=== PATIENT | female | born 1940 | race Caucasian/White ===

== ENCOUNTER → 2019-08-06 | Outpatient (CLI) | payer MEDICARE, OTHER ==
[~2019-08-06] MED LIST: OMNIPAQUE 350 MG/ML, 100ML BOTTLE ONE
== END | disposition home or self-care (01) ==
LOC: RAD 14:42
PROVIDERS: ATTEND Nurse Practitioner
DX: K80.20 Calculus of gallbladder without cholecystitis without obstruction (principal); M43.16 Spondylolisthesis, lumbar region; M51.36 Other intervertebral disc degeneration, lumbar region; I70.0 Atherosclerosis of aorta; N28.1 Cyst of kidney, acquired; K76.0 Fatty (change of) liver, not elsewhere classified
CPT/HCPCS: 74177; Q9967

== ENCOUNTER 2019-08-17 10:38 | Day surgery (SDC) | payer MEDICARE, OTHER ==
[2019-08-16 13:47] LABS: ALANINE AMINOTRANSFERASE 17 U/L (12-78); ALBUMIN 3.4 g/dL (3.4-5.0); ANION GAP 8 mmol/L (5-15); CALCIUM 8.7 mg/dL (8.5-10.1); CHLORIDE 109 mmol/L (98-107)
[2019-08-16 13:50] LABS: ALKALINE PHOSPHATASE 78 U/L (45-117); BILIRUBIN,TOTAL 0.5 mg/dL (0.2-1.0); TOTAL PROTEIN 6.9 g/dL (6.4-8.2)
[~2019-08-17] VITALS: Ht 166.4 cm; Wt 116.6 kg
[~2019-08-17 10:38] MED LIST changes: +CARV3.1212 PO; +CEPH-376 PO; +GABA600T7 PO; +HYDR50TA13 PO; +INSU200I4 SC; +IRON PO; +LACT1CAP35 PO; +LOPE2TAB28 PO; +METF500T17 PO; +MULT-658 PO; -OMNIPAQUE 350 MG/ML, 100ML BOTTLE ONE; +OXYC-302 PO; +PRAV40TA PO; +SERT100T32 PO; +VALS320T2 PO; +VITA100C8 PO
[2019-08-17] MEDS ORDERED: LACTATED RINGERS 1,000 ML IV SCH (11:18)
[2019-08-17 11:21] VITALS: BP 138/80
[2019-08-17] MEDS ORDERED: ACETAMINOPHEN 500 MG TABLET PO ONE (11:30)
[2019-08-17] MEDS ORDERED: LIDOCAINE 1%, 20ML ONE (11:44)
[2019-08-17] MEDS ORDERED: BUPIVACAINE/PF 0.5% ONE (11:44)
[2019-08-17] MEDS ORDERED: FENTANYL PF 100 MCG/2ML ONE (12:17)
[2019-08-17] MEDS ORDERED: PROMETHAZINE 25 MG SUPP PR PRN (12:30)
[2019-08-17] MEDS ORDERED: OXYcodone 5 MG/5 ML ORAL.SOL UDC PO PRN (12:30)
[2019-08-17] MEDS ORDERED: HYDROmorphone 2 MG/ML, 1ML IVPush PRN (12:30)
[2019-08-17] MEDS ORDERED: ONDANSETRON ODT 8 MG PO PRN (12:30)
[2019-08-17] MEDS ORDERED: PROMETHAZINE 25 MG/ML, 1ML IV PRN (12:30)
[2019-08-17] MEDS ORDERED: FENTANYL PF 100 MCG/2ML IV PRN (12:30)
[2019-08-17] MEDS ORDERED: ONDANSETRON 2MG/ML, 2ML IV PRN (12:30)
[2019-08-17] MEDS ORDERED: VANCOMYCIN 500 MG ONE (13:08)
[2019-08-17] MEDS ORDERED: ONDANSETRON 2MG/ML, 2ML ONE (13:27)
[2019-08-17] MEDS ORDERED: SUCCINYLCHOLINE 20 MG/ML, 10ML ONE (13:27)
[2019-08-17] MEDS ORDERED: PROPOFOL 10 MG/ML, 20ML ONE (13:27)
[2019-08-17] MEDS ORDERED: DEXAMETHASONE 4 MG/ML, 1ML ONE (13:27)
[2019-08-17] MEDS ORDERED: ROCURONIUM 10MG/ML,5ML ONE (13:27)
[2019-08-17] MEDS ORDERED: GLYCOPYRROLATE 0.2MG/1ML, 5ML ONE (13:27)
[2019-08-17] MEDS ORDERED: CEFAZOLIN 1,000 MG ONE (13:27)
[2019-08-17] MEDS ORDERED: NEOSTIGMINE 1 MG/ML, 10ML ONE (13:27)
[2019-08-17] MEDS ORDERED: hydrALAzine 20 MG/ML, 1ML ONE (13:49)
[2019-08-17] MEDS: hydrALAzine 20 MG/ML, 1ML IV PRN ×2 (13:59→14:24)
[2019-08-17] MEDS ORDERED: LABETALOL 5 MG/ML SYR. (IV ONLY) IV PRN (14:00)
== END 2019-08-17 16:20 | disposition home or self-care (01) ==
LOC: OUT 10:38
PROVIDERS: ATTEND Orthopaedic Surgery
DX: T81.89XA Other complications of procedures, not elsewhere classified, initial encounter (principal); E11.9 Type 2 diabetes mellitus without complications; I10 Essential (primary) hypertension; F15.90 Other stimulant use, unspecified, uncomplicated; Z79.84 Long term (current) use of oral hypoglycemic drugs; Z88.1 Allergy status to other antibiotic agents; Y83.8 Other surgical procedures as the cause of abnormal reaction of the patient, or of later complication, without mention of misadventure at the time of the procedure; Y92.89 Other specified places as the place of occurrence of the external cause
CPT/HCPCS: 20525; 36415; 80053; 82962; 87070; 87075; 87077; 87205; 93005; J0330; J0360; J0690; J1100; J2405; J2704; J2710; J3010; J3370; J7120

== ENCOUNTER 2019-10-11 16:53 | Emergency (ER) | payer MEDICARE, OTHER ==
[~2019-10-11] VITALS: Ht 162.6 cm; Wt 115.0 kg
[~2019-10-11 16:53] MED LIST changes: -HYDR50TA13 PO; +HYDR50TA99 PO
[2019-10-11 17:34] VITALS: BP 168/74
== END 2019-10-11 17:53 | disposition home or self-care (01) ==
LOC: ED 17:47
DX: G51.0 Bell's palsy (principal); I10 Essential (primary) hypertension; E11.9 Type 2 diabetes mellitus without complications; E78.5 Hyperlipidemia, unspecified
CPT/HCPCS: 99283

== ENCOUNTER 2020-03-18 17:40 | Inpatient (IN) | payer MEDICARE, OTHER ==
[~2020-03-18] VITALS: Ht 166.4 cm; Wt 104.5 kg
[2020-03-18 18:38] LABS: BASOPHILS # (AUTO) 0.01 x10^3/uL (0-0.1); BASOPHILS % (AUTO) 0 % (0-1); EOSINOPHILS # (AUTO) 0.06 x10^3/uL (0-0.4); EOSINOPHILS % (AUTO) 1 % (1-7); LYMPHOCYTES # (AUTO) 1.44 x10^3/uL (1-3.4); LYMPHOCYTES % (AUTO) 13 % (22-44); MD NO; MEAN CORPUSCULAR HEMOGLOBIN 25.9 pg (27.0-34.8); MEAN CORPUSCULAR HGB CONC 32.7 g/dL (32.4-35.8); MEAN PLATELET VOLUME 10.5 fL (7.4-10.4); MONOCYTES % (AUTO) 10 % (2-9); NEUTROPHILS # (AUTO) 8.29 x10^3/uL (1.8-6.8); NEUTROPHILS % (AUTO) 76 % (42-75); PLATELET COUNT 201 x10^3/uL (130-400); RED BLOOD COUNT 5.19 x10^6/uL (3.82-5.3); RED CELL DISTRIBUTION WIDTH 16.3 % (9.6-15.2)
[2020-03-18 18:45] LABS: ALANINE AMINOTRANSFERASE 13 U/L (12-78); ALBUMIN 3.1 g/dL (3.4-5.0); ANION GAP 11 mmol/L (5-15); CALCIUM 8.6 mg/dL (8.5-10.1); CHLORIDE 101 mmol/L (98-107); CREATININE 1.33 mg/dL (0.55-1.02)
[2020-03-18 18:47] LABS: ALKALINE PHOSPHATASE 72 U/L (45-117); BILIRUBIN,TOTAL 0.8 mg/dL (0.2-1.0); TOTAL PROTEIN 7.2 g/dL (6.4-8.2)
[2020-03-18 19:06] LABS: ACETONE, SERUM Trace (Negative)
[2020-03-18 19:08] LABS: MICROSCOPIC INDICATED
[2020-03-18] MEDS ORDERED: OXYcodone/APAP 5/325MG TABLET ONE (19:49)
[2020-03-18] MEDS ORDERED: SODIUM CHLORIDE FLUSH 10ML SYR IVF ONE ×2 (20:00→20:30)
[2020-03-18] MEDS ORDERED: CEFTRIAXONE PMX 1GM/50ML 50 ML IV ONE (20:00)
[2020-03-18] MEDS ORDERED: OXYcodone/APAP 5/325MG TABLET PO ONE (20:00)
[2020-03-18] MEDS ORDERED: SODIUM CHLORIDE FLUSH 10ML SYR IVF PRN (20:30)
[2020-03-18] MEDS ORDERED: CEFTRIAXONE PMX 1GM/50ML 50 ML ONE (20:39)
[2020-03-18] MEDS ORDERED: ONDANSETRON 2MG/ML, 2ML IVPush PRN (21:00)
[2020-03-18] MEDS ORDERED: MELATONIN 5 MG TABLET PO PRN (21:00)
[2020-03-18] MEDS ORDERED: morphine SULFATE 10 MG/ML, 1ML IVPush PRN (21:00)
[2020-03-18] MEDS ORDERED: INSULIN GLARGINE 100 UNITS/ML, PEN SQ-INSULIN SCH (21:00)
[2020-03-18 21:06] LABS: TROPONIN I < 0.015 ng/mL (0.000-0.045)
--- NOTE | 2020-03-18 21:20 | NUR ---
REPORT RECEIVED AND CARE ASSUMED. PT STATES PAIN IMPROVED AFTER MEDS. ANTIBIOTICS COMPLETE. AWAITING TRANSFER TO FLOOR. VSS.
[2020-03-18] MEDS: SODIUM CHLORIDE 0.9% 500 ML IV SCH ×2 (21:30→23:30)
--- NOTE | 2020-03-18 21:37 | NUR ---
Report to Alda.
[2020-03-18 22:31] VITALS: BP 134/63
[2020-03-18] MEDS: HEPARIN 5,000 UNITS/ML, 1ML SQ SCH (22:35)
[2020-03-18] MEDS: SERTRALINE 50MG TABLET PO SCH (22:35)
[2020-03-18] MEDS: PRAVASTATIN 40 MG TABLET PO SCH (22:35)
[2020-03-18] MEDS: CARVEDILOL 3.125 MG TABLET PO SCH (22:36)
[2020-03-18] MEDS: GABAPENTIN 300 MG CAPSULE PO SCH (22:40)
[2020-03-18] MEDS: INSULIN LISPRO 100 UNITS/ML, PEN SQ-INSULIN SCH (22:41)
[2020-03-19 01:04] VITALS: BP 96/61
[2020-03-19 02:28] LABS: BASOPHILS # (AUTO) 0.04 x10^3/uL (0-0.1); BASOPHILS % (AUTO) 1 % (0-1); EOSINOPHILS # (AUTO) 0.14 x10^3/uL (0-0.4); EOSINOPHILS % (AUTO) 2 % (1-7); LYMPHOCYTES # (AUTO) 1.84 x10^3/uL (1-3.4); LYMPHOCYTES % (AUTO) 20 % (22-44); MD NO; MEAN CORPUSCULAR HGB CONC 32.7 g/dL (32.4-35.8); MEAN PLATELET VOLUME 9.6 fL (7.4-10.4); MONOCYTES % (AUTO) 10 % (2-9); NEUTROPHILS # (AUTO) 6.25 x10^3/uL (1.8-6.8); NEUTROPHILS % (AUTO) 68 % (42-75); PLATELET COUNT 188 x10^3/uL (130-400); RED BLOOD COUNT 4.98 x10^6/uL (3.82-5.3); RED CELL DISTRIBUTION WIDTH 16.1 % (9.6-15.2)
[2020-03-19 02:39] LABS: ANION GAP 7 mmol/L (5-15); CALCIUM 8.7 mg/dL (8.5-10.1); CHLORIDE 104 mmol/L (98-107); CREATININE 1.21 mg/dL (0.55-1.02)
[2020-03-19 02:48] LABS: TROPONIN I < 0.015 ng/mL (0.000-0.045)
[2020-03-19] MEDS: OXYcodone IR 5MG TABLET PO PRN ×2 (05:52→12:12)
[2020-03-19] MEDS: HEPARIN 5,000 UNITS/ML, 1ML SQ SCH ×2 (05:52→15:37)
[2020-03-19 07:09] VITALS: BP 134/74
[2020-03-19] MEDS: INSULIN LISPRO 100 UNITS/ML, PEN SQ-INSULIN SCH ×4 (08:59→20:09)
[2020-03-19] MEDS: LACTOBACILLUS CHEW TABLET PO SCH (08:59)
[2020-03-19] MEDS: MULTIVITAMIN 1 TABLET PO SCH (08:59)
[2020-03-19] MEDS: CARVEDILOL 3.125 MG TABLET PO SCH ×2 (09:00→20:08)
[2020-03-19] MEDS: GABAPENTIN 300 MG CAPSULE PO SCH (09:00)
[2020-03-19] MEDS: FERROUS SULFATE 325 MG TABLET PO SCH (09:08)
[2020-03-19 09:13] LABS: TROPONIN I < 0.015 ng/mL (0.000-0.045)
[2020-03-19 12:10] VITALS: BP 121/67
[2020-03-19 18:54] VITALS: BP 118/79
[2020-03-19] MEDS: PRAVASTATIN 40 MG TABLET PO SCH (20:08)
[2020-03-19] MEDS: SERTRALINE 50MG TABLET PO SCH (20:08)
[2020-03-19] MEDS: CEFTRIAXONE PMX 1GM/50ML 50 ML IV SCH (20:08)
[2020-03-19] MEDS: POTASSIUM CHLORIDE 20 MEQ in LACTATED RINGERS 1,000 ML IV SCH (20:08)
[2020-03-19] MEDS: INSULIN GLARGINE 100 UNITS/ML, PEN SQ-INSULIN SCH (20:09)
[2020-03-20] MEDS: HEPARIN 5,000 UNITS/ML, 1ML SQ SCH ×3 (00:12→17:44)
[2020-03-20 00:44] VITALS: BP 136/84
[2020-03-20 06:22] LABS: ANION GAP 8 mmol/L (5-15); BASOPHILS # (AUTO) 0.03 x10^3/uL (0-0.1); BASOPHILS % (AUTO) 0 % (0-1); CALCIUM 8.8 mg/dL (8.5-10.1); CHLORIDE 107 mmol/L (98-107); EOSINOPHILS # (AUTO) 0.27 x10^3/uL (0-0.4); EOSINOPHILS % (AUTO) 3 % (1-7); LYMPHOCYTES # (AUTO) 1.51 x10^3/uL (1-3.4); LYMPHOCYTES % (AUTO) 18 % (22-44); MD NO; MEAN CORPUSCULAR HEMOGLOBIN 25.8 pg (27.0-34.8); MEAN CORPUSCULAR HGB CONC 32.3 g/dL (32.4-35.8); MEAN PLATELET VOLUME 9.4 fL (7.4-10.4); MONOCYTES # (AUTO) 0.86 x10^3/uL (0.2-0.8); MONOCYTES % (AUTO) 11 % (2-9); NEUTROPHILS # (AUTO) 5.55 x10^3/uL (1.8-6.8); NEUTROPHILS % (AUTO) 68 % (42-75); PLATELET COUNT 226 x10^3/uL (130-400); RED BLOOD COUNT 5.05 x10^6/uL (3.82-5.3); RED CELL DISTRIBUTION WIDTH 15.9 % (9.6-15.2)
[2020-03-20 06:23] LABS: CREATININE 0.94 mg/dL (0.55-1.02)
[2020-03-20 08:24] VITALS: BP 172/80
[2020-03-20] MEDS: LACTOBACILLUS CHEW TABLET PO SCH (09:14)
[2020-03-20] MEDS: MULTIVITAMIN 1 TABLET PO SCH (09:16)
[2020-03-20] MEDS: FERROUS SULFATE 325 MG TABLET PO SCH (09:17)
[2020-03-20] MEDS: CARVEDILOL 3.125 MG TABLET PO SCH ×2 (09:18→22:55)
[2020-03-20] MEDS: POTASSIUM CHLORIDE 20 MEQ in LACTATED RINGERS 1,000 ML IV SCH (09:19)
[2020-03-20] MEDS: INSULIN LISPRO 100 UNITS/ML, PEN SQ-INSULIN SCH ×4 (09:19→22:59)
[2020-03-20] MEDS: OXYcodone IR 5MG TABLET PO PRN (09:41)
[2020-03-20 12:27] VITALS: BP 146/71
[2020-03-20 20:00] VITALS: BP 150/91
[2020-03-20] MEDS: CEFTRIAXONE PMX 1GM/50ML 50 ML IV SCH (22:54)
[2020-03-20] MEDS: PRAVASTATIN 40 MG TABLET PO SCH (22:55)
[2020-03-20] MEDS: SERTRALINE 50MG TABLET PO SCH (22:57)
[2020-03-20] MEDS: INSULIN GLARGINE 100 UNITS/ML, PEN SQ-INSULIN SCH (23:00)
[2020-03-21] VITALS (15 sets, daily range): BP systolic 164–213; BP diastolic 74–111
[2020-03-21] MEDS: HEPARIN 5,000 UNITS/ML, 1ML SQ SCH ×3 (00:23→16:20)
[2020-03-21] MEDS: POTASSIUM CHLORIDE 20 MEQ in LACTATED RINGERS 1,000 ML IV SCH ×2 (00:57→17:12)
[2020-03-21] MEDS: hydrALAzine 20 MG/ML, 1ML IVPush PRN ×3 (05:23→16:27)
[2020-03-21 06:40] LABS: ANION GAP 10 mmol/L (5-15); CALCIUM 9.3 mg/dL (8.5-10.1); CHLORIDE 106 mmol/L (98-107)
[2020-03-21 06:42] LABS: CREATININE 0.62 mg/dL (0.55-1.02)
[2020-03-21] MEDS: INSULIN GLARGINE 100 UNITS/ML, PEN SQ-INSULIN SCH (08:07)
[2020-03-21] MEDS: CARVEDILOL 6.25 MG TABLET PO SCH ×2 (08:07→20:26)
[2020-03-21] MEDS: INSULIN LISPRO 100 UNITS/ML, PEN SQ-INSULIN SCH ×4 (08:08→20:28)
[2020-03-21] MEDS ORDERED: VALSARTAN 160 MG TABLET PO SCH (09:00)
[2020-03-21] MEDS: MULTIVITAMIN 1 TABLET PO SCH (09:45)
[2020-03-21] MEDS: FERROUS SULFATE 325 MG TABLET PO SCH (09:45)
[2020-03-21] MEDS: LACTOBACILLUS CHEW TABLET PO SCH (09:45)
[2020-03-21] MEDS: OXYcodone IR 5MG TABLET PO PRN (09:46)
[2020-03-21] MEDS: VALSARTAN 160 MG TABLET PO SCH (17:12)
[2020-03-21] MEDS: ACETAMINOPHEN 325 MG TABLET PO PRN (17:12)
[2020-03-21] MEDS: CEFTRIAXONE PMX 1GM/50ML 50 ML IV SCH (20:19)
[2020-03-21] MEDS: PRAVASTATIN 40 MG TABLET PO SCH (20:26)
[2020-03-21] MEDS: SERTRALINE 50MG TABLET PO SCH (20:26)
[2020-03-21] MEDS ORDERED: INSULIN GLARGINE 100 UNITS/ML, PEN SQ-INSULIN SCH (21:00)
[2020-03-22] VITALS (9 sets, daily range): BP systolic 125–191; BP diastolic 69–97
[2020-03-22] MEDS: POTASSIUM CHLORIDE 20 MEQ in LACTATED RINGERS 1,000 ML IV SCH (00:27)
[2020-03-22] MEDS: hydrALAzine 20 MG/ML, 1ML IVPush PRN (02:56)
[2020-03-22] MEDS ORDERED: niFEDipine ER 30 MG TABLET.ER ONE (05:46)
[2020-03-22] MEDS ORDERED: niFEDipine ER 30 MG TABLET.ER PO ONE ×2 (06:00→09:00)
[2020-03-22 06:39] LABS: ANION GAP 9 mmol/L (5-15); CALCIUM 9.6 mg/dL (8.5-10.1); CHLORIDE 103 mmol/L (98-107); CREATININE 0.68 mg/dL (0.55-1.02)
[2020-03-22] MEDS: MULTIVITAMIN 1 TABLET PO SCH (07:53)
[2020-03-22] MEDS: FERROUS SULFATE 325 MG TABLET PO SCH (07:54)
[2020-03-22] MEDS: LACTOBACILLUS CHEW TABLET PO SCH (07:54)
[2020-03-22] MEDS: CARVEDILOL 6.25 MG TABLET PO SCH ×2 (07:54→21:12)
[2020-03-22] MEDS: ACETAMINOPHEN 325 MG TABLET PO PRN (07:54)
[2020-03-22] MEDS: VALSARTAN 160 MG TABLET PO SCH ×2 (07:54→21:12)
[2020-03-22] MEDS: HEPARIN 5,000 UNITS/ML, 1ML SQ SCH ×3 (07:55→17:12)
[2020-03-22] MEDS: INSULIN GLARGINE 100 UNITS/ML, PEN SQ-INSULIN SCH ×2 (08:56→21:11)
[2020-03-22] MEDS: INSULIN LISPRO 100 UNITS/ML, PEN SQ-INSULIN SCH ×4 (08:57→21:11)
[2020-03-22] MEDS ORDERED: CARVEDILOL 6.25 MG TABLET PO SCH (11:30)
[2020-03-22] MEDS: CEFTRIAXONE PMX 1GM/50ML 50 ML IV SCH (21:09)
[2020-03-22] MEDS: SERTRALINE 50MG TABLET PO SCH (21:11)
[2020-03-22] MEDS: PRAVASTATIN 40 MG TABLET PO SCH (21:11)
[2020-03-23] MEDS: HEPARIN 5,000 UNITS/ML, 1ML SQ SCH ×3 (00:20→17:04)
[2020-03-23 00:34] VITALS: BP 108/56
[2020-03-23] MEDS: INSULIN LISPRO 100 UNITS/ML, PEN SQ-INSULIN SCH ×4 (07:00→21:35)
[2020-03-23 08:16] VITALS: BP 112/74
[2020-03-23] MEDS: CARVEDILOL 6.25 MG TABLET PO SCH ×2 (09:05→21:33)
[2020-03-23] MEDS: FERROUS SULFATE 325 MG TABLET PO SCH (09:05)
[2020-03-23] MEDS: VALSARTAN 160 MG TABLET PO SCH ×2 (09:05→21:32)
[2020-03-23] MEDS: INSULIN GLARGINE 100 UNITS/ML, PEN SQ-INSULIN SCH ×2 (09:06→21:35)
[2020-03-23] MEDS: MULTIVITAMIN 1 TABLET PO SCH (09:06)
[2020-03-23] MEDS: LACTOBACILLUS CHEW TABLET PO SCH (09:08)
[2020-03-23 13:10] VITALS: BP 126/72
[2020-03-23 20:17] VITALS: BP 121/70
[2020-03-23] MEDS: CEFTRIAXONE PMX 1GM/50ML 50 ML IV SCH (21:32)
[2020-03-23] MEDS: PRAVASTATIN 40 MG TABLET PO SCH (21:33)
[2020-03-23] MEDS: SERTRALINE 50MG TABLET PO SCH (21:33)
[2020-03-24] MEDS: HEPARIN 5,000 UNITS/ML, 1ML SQ SCH ×3 (01:04→16:41)
[2020-03-24 02:33] VITALS: BP 110/66
[2020-03-24 04:43] LABS: BASOPHILS # (AUTO) 0.12 x10^3/uL (0-0.1); BASOPHILS % (AUTO) 1 % (0-1); EOSINOPHILS # (AUTO) 0.38 x10^3/uL (0-0.4); EOSINOPHILS % (AUTO) 3 % (1-7); LYMPHOCYTES # (AUTO) 2.31 x10^3/uL (1-3.4); LYMPHOCYTES % (AUTO) 21 % (22-44); MD NO; MEAN CORPUSCULAR HEMOGLOBIN 25.7 pg (27.0-34.8); MEAN CORPUSCULAR HGB CONC 31.9 g/dL (32.4-35.8); MEAN PLATELET VOLUME 8.9 fL (7.4-10.4); MONOCYTES # (AUTO) 0.89 x10^3/uL (0.2-0.8); MONOCYTES % (AUTO) 8 % (2-9); NEUTROPHILS # (AUTO) 7.53 x10^3/uL (1.8-6.8); NEUTROPHILS % (AUTO) 67 % (42-75); PLATELET COUNT 349 x10^3/uL (130-400); RED BLOOD COUNT 5.64 x10^6/uL (3.82-5.3); RED CELL DISTRIBUTION WIDTH 16.1 % (9.6-15.2)
[2020-03-24 04:49] LABS: ANION GAP 8 mmol/L (5-15); CHLORIDE 107 mmol/L (98-107); CREATININE 1.01 mg/dL (0.55-1.02)
[2020-03-24] MEDS: INSULIN LISPRO 100 UNITS/ML, PEN SQ-INSULIN SCH ×3 (07:00→16:00)
[2020-03-24 08:48] VITALS: BP 147/74
[2020-03-24] MEDS: FERROUS SULFATE 325 MG TABLET PO SCH (08:53)
[2020-03-24] MEDS: MULTIVITAMIN 1 TABLET PO SCH (08:53)
[2020-03-24] MEDS: CARVEDILOL 6.25 MG TABLET PO SCH (08:53)
[2020-03-24] MEDS: LACTOBACILLUS CHEW TABLET PO SCH (08:53)
[2020-03-24] MEDS: VALSARTAN 160 MG TABLET PO SCH (08:53)
[2020-03-24] MEDS: INSULIN GLARGINE 100 UNITS/ML, PEN SQ-INSULIN SCH (08:53)
[2020-03-24] MEDS ORDERED: SODIUM CHLORIDE 0.9% 250 ML IV ONE (12:00)
[2020-03-24] MEDS ORDERED: SODIUM CHLORIDE 0.9%, 250ML IVBOLUS ONE (12:00)
[2020-03-24 13:12] VITALS: BP 127/66
[2020-03-24 14:09] LABS: ANION GAP 9 mmol/L (5-15); CALCIUM 8.6 mg/dL (8.5-10.1); CHLORIDE 107 mmol/L (98-107); CREATININE 0.95 mg/dL (0.55-1.02)
[2020-03-24] MEDS ORDERED: CARV3.1212 PO (15:19)
== END 2020-03-24 19:12 | DRG 689 ==
LOC: ED 18:25 → EDIP 20:01 → 4WST 22:16
PROVIDERS: ADMIT Family Medicine; ATTEND Hospitalist
DX: N39.0 Urinary tract infection, site not specified (principal); N17.0 Acute kidney failure with tubular necrosis; E87.1 Hypo-osmolality and hyponatremia; E44.1 Mild protein-calorie malnutrition; E11.65 Type 2 diabetes mellitus with hyperglycemia; S80.01XA Contusion of right knee, initial encounter; W06.XXXA Fall from bed, initial encounter; S83.411A Sprain of medial collateral ligament of right knee, initial encounter; B96.89 Other specified bacterial agents as the cause of diseases classified elsewhere; I10 Essential (primary) hypertension; Z79.899 Other long term (current) drug therapy; E78.5 Hyperlipidemia, unspecified; B96.20 Unspecified Escherichia coli [E. coli] as the cause of diseases classified elsewhere; Z68.38 Body mass index [BMI] 38.0-38.9, adult; E66.9 Obesity, unspecified; Z90.49 Acquired absence of other specified parts of digestive tract; Z79.4 Long term (current) use of insulin; Z79.84 Long term (current) use of oral hypoglycemic drugs; Z88.2 Allergy status to sulfonamides; Z83.3 Family history of diabetes mellitus; Y93.89 Activity, other specified; Y92.098 Other place in other non-institutional residence as the place of occurrence of the external cause; Y99.8 Other external cause status
CPT/HCPCS: 36415; 80048; 80053; 81001; 82010; 82800; 82962; 83036; 83605; 83735; 84100; 84443; 84484; 85025; 87040; 87077; 87086; 87186; 93005; 96374; 99285; C8929; G0378; J0696; J1644; J3480; Q9957; J0360; J1815; J7040; J7050; J7120

== ENCOUNTER 2020-05-23 17:51 | Emergency (ER) | payer MEDICARE, OTHER ==
[~2020-05-23] VITALS: Ht 165.1 cm; Wt 100.0 kg
[2020-05-23 18:06] VITALS: BP 159/95
== END 2020-05-23 18:56 ==
LOC: ED 18:23
DX: L50.9 Urticaria, unspecified (principal); Z53.21 Procedure and treatment not carried out due to patient leaving prior to being seen by health care provider

== ENCOUNTER → 2020-10-09 | Outpatient (CLI) | payer MEDICARE, OTHER ==
[~2020-10-09] MED LIST changes: -OXYC-302 PO; +OXYC1TAB14 PO; +VITA100C10 PO; -VITA100C8 PO
== END | disposition home or self-care (01) ==
LOC: CFH 11:03
PROVIDERS: ATTEND Licensed Practical Nurse
DX: M85.80 Other specified disorders of bone density and structure, unspecified site (principal); N95.8 Other specified menopausal and perimenopausal disorders
CPT/HCPCS: 77080